=== PATIENT | male | born 1950 | race Two or more races ===

== ENCOUNTER 2020-02-01 19:53 | Emergency (ER) | payer MEDICARE, MEDICAID ==
[~2020-02-01] VITALS: Ht 180.3 cm; Wt 77.1 kg
[2020-02-01] MEDS ORDERED: SODIUM CHLORIDE 0.9% 500 ML IV ONE (20:30)
[2020-02-01 20:50] LABS: Basophils # (auto) 0 10 ^3/uL (0-0.2); Mean Corpuscular Hgb Conc. 35.3 g/dL (32.0-36.0); Monocytes # (auto) 0.4 10 ^3/uL (0-1.3); Red Blood Cells 4.61 10^6/uL (4.5-5.90)
[2020-02-01 20:52] LABS: Eosinophils # (auto) 0.1 10 ^3/uL (0-0.8); Eosinophils % (auto) 2.9 % (0.0-7.0); Hematocrit 45.5 % (41.0-53.0); Hemoglobin 16.1 g/dL (13.5-17.5); Lymphocytes % (auto) 22.9 % (10.0-50.0); Mean Corpuscular Hemoglobin 34.9 pg (28.0-32.0); Mean Corpuscular Volume 98.7 fL (80.0-100.0); Monocytes % (auto) 9.2 % (0.0-12.0); Neutrophils # (auto) 2.7 10 ^3/uL (1.6-8.6); Platelet Count (auto) 250 10^3/uL (140-450); White Blood Cell 4.2 10^3/uL (4.4-10.8)
[2020-02-01 21:03] LABS: Albumin 4.1 g/dL (3.4-5.0); BUN/Creatinine Ratio 8.8; Calcium 8.9 mg/dL (8.5-10.1); Magnesium 1.8 mg/dL (1.6-2.6); Potassium 3.9 mmol/L (3.5-5.1)
[2020-02-01 21:04] LABS: INR 1.06 (0.9-1.15); Partial Thromboplastin Time 27.9 sec (23.0-31.2)
[2020-02-01 21:08] LABS: Acetaminophen < 2.0 ug/mL (10-30)
[2020-02-01 21:09] LABS: Bilirubin, Total 0.7 mg/dL (0.2-1.0); Total Protein 7.9 g/dL (6.4-8.2)
[2020-02-01] MEDS ORDERED: IOHEXOL 350 MG/ML 100ML IJ ONE (22:14)
[2020-02-01] MEDS ORDERED: SODIUM CHLORIDE 0.9% 1,000 ML IV ONE (22:15)
[2020-02-01 22:50] VITALS: BP 134/84
== END 2020-02-01 22:46 | disposition home or self-care (01) ==
LOC: EDBD 19:53 → ER 19:57
DX: I21.4 Non-ST elevation (NSTEMI) myocardial infarction (principal); F19.20 Other psychoactive substance dependence, uncomplicated; I95.2 Hypotension due to drugs; R79.89 Other specified abnormal findings of blood chemistry; I10 Essential (primary) hypertension; E11.9 Type 2 diabetes mellitus without complications
CPT/HCPCS: 36415; 71045; 80053; 80320; 80329; 82962; 83735; 83880; 84484; 85025; 85379; 85610; 85730; 93005; 99291; Q9967

== ENCOUNTER 2020-07-03 12:17 | Inpatient (IN) | payer MEDICARE, MEDICAID ==
[~2020-07-03] VITALS: Ht 180.3 cm; Wt 76.8 kg
[2020-07-03] MEDS ORDERED: SODIUM CHLORIDE 0.9% 500 ML IV ONE (12:45)
[2020-07-03 14:51] LABS: Basophils # (auto) 0.1 10 ^3/uL (0-0.2); Eosinophils # (auto) 0.1 10 ^3/uL (0-0.8); Eosinophils % (auto) 1.8 % (0.0-7.0); Hematocrit 45.7 % (41.0-53.0); Lymphocytes # (auto) 1.8 10 ^3/uL (0.4-5.4); Lymphocytes % (auto) 32.5 % (10.0-50.0); Mean Corpuscular Hemoglobin 35.6 pg (28.0-32.0); Mean Corpuscular Hgb Conc. 34.9 g/dL (32.0-36.0); Monocytes # (auto) 0.5 10 ^3/uL (0-1.3); Monocytes % (auto) 8.6 % (0.0-12.0); Neutrophils % (auto) 56.1 % (37.0-80.0); Nucleated Red Blood Cells % 0.1 %; Platelet Count (auto) 297 10^3/uL (140-450); Red Blood Cells 4.48 10^6/uL (4.5-5.90); Red Cell Distribution Width 14.1 % (11.8-14.3); White Blood Cell 5.4 10^3/uL (4.4-10.8)
[2020-07-03 15:02] LABS: Albumin 3.8 g/dL (3.4-5.0); Anion Gap 7 (5-15); Calcium 8.7 mg/dL (8.5-10.1); Carbon Dioxide 25 mmol/L (21-32); Chloride 105 mmol/L (98-107); Glucose 213 mg/dL (74-106); Magnesium 2.1 mg/dL (1.6-2.6); Potassium 4.3 mmol/L (3.5-5.1); Sodium 137 mmol/L (136-145)
[2020-07-03 15:04] LABS: Aspartate Aminotransferase 17 U/L (15-37); GFR African American 73 mL/min; GFR Non-African American 61 mL/min
[2020-07-03 15:09] LABS: Alanine Aminotransferase 19 U/L (16-61); Alkaline Phosphatase 86 U/L (45-117); Bilirubin, Total 0.7 mg/dL (0.2-1.0); Total Protein 7.6 g/dL (6.4-8.2)
[2020-07-03 15:37] LABS: Blood Urea Nitrogen 15 mg/dL (7-18)
[2020-07-03] MEDS ORDERED: NITROGLYCERIN 0.4 MG SL TAB SL PRN (22:45)
[2020-07-03] MEDS ORDERED: ONDANSETRON HCL 4 MG/2 ML VIAL IV PRN (22:45)
[2020-07-03] MEDS ORDERED: DOCUSATE SOD 100 MG CAP PO PRN (22:45)
[2020-07-03] MEDS ORDERED: ACETAMINOPHEN 325 MG TAB PO PRN (22:45)
[2020-07-03] MEDS ORDERED: MORPHINE SULF INJ 2 MG/ML SYRINGE 1ML IV PRN (22:45)
[2020-07-03] MEDS ORDERED: DEXTROSE (50%) 50ML SYRG IV PRN (22:45)
[2020-07-03 22:59] LABS: Urine Bacteria NONE SEEN /hpf (None Seen); Urine Blood Negative /uL (Negative); Urine Specific Gravity 1.023 (1.001-1.035); Urine WBC <1 /hpf (0 - 3)
[2020-07-03] MEDS ORDERED: MECLIZINE HCL 25 MG TAB PO PRN (23:15)
[2020-07-04] MEDS: HYDROcodone-ACET 5/325MG TAB PO PRN ×3 (00:10→22:26)
[2020-07-04 00:15] LABS: INR 1.01 (0.9-1.15); Partial Thromboplastin Time 24.2 sec (23.0-31.2)
[2020-07-04] MEDS ORDERED: hydrALAZINE HCL 20 MG/ML VL IV PRN (01:00)
[2020-07-04] MEDS: SODIUM CHLORIDE 0.9% 1,000 ML IV SCH ×2 (01:03→16:27)
[2020-07-04] MEDS: ACCU-CHEK COMFORT CURVE STRIP VI SCH ×4 (06:27→22:29)
[2020-07-04] MEDS: InsuLIN REG 1unit/0.01ml Soln (100units/ml) SC SCH ×4 (07:07→22:27)
[2020-07-04 08:02] LABS: Calcium 8.6 mg/dL (8.5-10.1); Potassium 3.8 mmol/L (3.5-5.1)
[2020-07-04 08:08] LABS: Albumin 3.7 g/dL (3.4-5.0); Bilirubin, Total 0.9 mg/dL (0.2-1.0); Total Protein 7.7 g/dL (6.4-8.2)
[2020-07-04 08:30] LABS: Basophils # (auto) 0 10 ^3/uL (0-0.2); Basophils % (auto) 0.7 % (0.0-2.0); Eosinophils # (auto) 0.1 10 ^3/uL (0-0.8); Hematocrit 44.2 % (41.0-53.0); Hemoglobin 15.5 g/dL (13.5-17.5); Lymphocytes # (auto) 1.8 10 ^3/uL (0.4-5.4); Mean Corpuscular Hemoglobin 35.5 pg (28.0-32.0); Mean Corpuscular Volume 101.2 fL (80.0-100.0); Monocytes # (auto) 0.5 10 ^3/uL (0-1.3); Monocytes % (auto) 9.5 % (0.0-12.0); Neutrophils # (auto) 2.9 10 ^3/uL (1.6-8.6); Neutrophils % (auto) 53.8 % (37.0-80.0); Nucleated Red Blood Cells % 0.2 %; Platelet Count (auto) 289 10^3/uL (140-450); Red Blood Cells 4.37 10^6/uL (4.5-5.90); Red Cell Distribution Width 13.8 % (11.8-14.3); White Blood Cell 5.4 10^3/uL (4.4-10.8)
[2020-07-04 09:00] VITALS: BP 147/89
[2020-07-04] MEDS ORDERED: PARO1TAB33 PO (09:48)
[2020-07-04] MEDS ORDERED: INSDRIP SC (09:48)
[2020-07-04] MEDS ORDERED: LISI-648 PO (09:48)
[2020-07-04] MEDS ORDERED: ATOR40TA52 PO (09:48)
[2020-07-04] MEDS ORDERED: GABA300C10 PO (09:48)
[2020-07-04] MEDS ORDERED: HYDR-4072 PO (09:48)
[2020-07-04 09:51] VITALS: BP 147/89
[2020-07-04] MEDS: ENOXAPARIN SOD 40 MG/0.4 ML SYRINGE SC SCH (10:54)
[2020-07-04] MEDS: ASCORBIC ACID 500 MG TAB PO SCH ×2 (10:54→22:25)
[2020-07-04] MEDS: MULTIPLE VITAMIN TAB PO SCH (10:55)
[2020-07-04] MEDS: ZINC SULFATE 220mg CAP or TAB PO SCH (10:55)
[2020-07-04] MEDS: amLODIPine BESYLATE 5 MG TAB PO SCH (10:55)
[2020-07-04] MEDS: FAMOTIDINE (10MG/ML) 2ML VL IV SCH ×2 (10:56→22:24)
[2020-07-04 13:00] VITALS: BP 149/93
[2020-07-04] MEDS: GABAPENTIN 300 MG CAP PO SCH ×2 (14:43→22:25)
[2020-07-04 17:00] VITALS: BP 150/87
[2020-07-04 20:10] VITALS: BP 152/90
[2020-07-04 21:55] VITALS: BP 152/90
[2020-07-04] MEDS ORDERED: LORazepam 2MG/ML-1ML VIAL IV PRN (22:00)
[2020-07-04 22:24] LABS: Folate (Folic Acid) 10.33 ng/mL (5.38-24)
[2020-07-04] MEDS: ATORVASTATIN 20 MG TAB PO SCH (22:25)
[2020-07-04] MEDS: INSULIN LANTUS (GLARGINE) 1 /0.01ml (100units/ml) SC SCH (22:27)
[2020-07-05 05:17] VITALS: BP 132/91
[2020-07-05 05:44] LABS: Basophils # (auto) 0 10 ^3/uL (0-0.2); Eosinophils # (auto) 0.1 10 ^3/uL (0-0.8); Hemoglobin 15.2 g/dL (13.5-17.5); Neutrophils # (auto) 3.1 10 ^3/uL (1.6-8.6); Red Cell Distribution Width 13.9 % (11.8-14.3); White Blood Cell 6.2 10^3/uL (4.4-10.8)
[2020-07-05 05:49] LABS: Basophils % (auto) 0.6 % (0.0-2.0); Eosinophils % (auto) 1.6 % (0.0-7.0); Hematocrit 42.6 % (41.0-53.0); Lymphocytes # (auto) 2.4 10 ^3/uL (0.4-5.4); Lymphocytes % (auto) 39.5 % (10.0-50.0); Mean Corpuscular Hgb Conc. 35.7 g/dL (32.0-36.0); Mean Corpuscular Volume 100.9 fL (80.0-100.0); Monocytes # (auto) 0.5 10 ^3/uL (0-1.3); Monocytes % (auto) 8.3 % (0.0-12.0); Nucleated Red Blood Cells % 0.1 %; Platelet Count (auto) 288 10^3/uL (140-450); Red Blood Cells 4.22 10^6/uL (4.5-5.90)
[2020-07-05] MEDS: ACCU-CHEK COMFORT CURVE STRIP VI SCH ×4 (06:12→21:08)
[2020-07-05 06:14] LABS: Albumin 3.5 g/dL (3.4-5.0); Calcium 8.3 mg/dL (8.5-10.1); Potassium 3.9 mmol/L (3.5-5.1)
[2020-07-05] MEDS: InsuLIN REG 1unit/0.01ml Soln (100units/ml) SC SCH ×4 (06:15→21:08)
[2020-07-05] MEDS: GABAPENTIN 300 MG CAP PO SCH ×3 (06:15→21:07)
[2020-07-05 06:19] LABS: BUN/Creatinine Ratio 23.3; Bilirubin, Total 0.6 mg/dL (0.2-1.0); Total Protein 7.4 g/dL (6.4-8.2)
[2020-07-05 08:00] VITALS: BP 158/97
[2020-07-05] MEDS: SODIUM CHLORIDE 0.9% 1,000 ML IV SCH (08:43)
[2020-07-05] MEDS: ZINC SULFATE 220mg CAP or TAB PO SCH (09:30)
[2020-07-05] MEDS: FAMOTIDINE (10MG/ML) 2ML VL IV SCH ×2 (09:30→21:08)
[2020-07-05] MEDS: MULTIPLE VITAMIN TAB PO SCH (09:30)
[2020-07-05] MEDS: ASCORBIC ACID 500 MG TAB PO SCH ×2 (09:31→21:07)
[2020-07-05] MEDS: amLODIPine BESYLATE 5 MG TAB PO SCH (09:31)
[2020-07-05] MEDS: PARoxetine 20 MG TAB PO SCH (09:31)
[2020-07-05] MEDS: LISINOPRIL 10 MG TAB PO SCH (09:32)
[2020-07-05] MEDS: ENOXAPARIN SOD 40 MG/0.4 ML SYRINGE SC SCH (09:32)
[2020-07-05 12:51] VITALS: BP 146/98
[2020-07-05] MEDS: HYDROcodone-ACET 5/325MG TAB PO PRN (13:58)
[2020-07-05 16:38] VITALS: BP 145/80
[2020-07-05] MEDS: ATORVASTATIN 20 MG TAB PO SCH (21:07)
[2020-07-05] MEDS: INSULIN LANTUS (GLARGINE) 1 /0.01ml (100units/ml) SC SCH (21:08)
[2020-07-05 21:24] VITALS: BP 142/88
[2020-07-06] MEDS: SODIUM CHLORIDE 0.9% 1,000 ML IV SCH (00:43)
[2020-07-06 04:35] VITALS: BP 135/80
[2020-07-06] MEDS: GABAPENTIN 300 MG CAP PO SCH ×2 (05:53→14:27)
[2020-07-06 06:16] LABS: Basophils # (auto) 0 10 ^3/uL (0-0.2); Monocytes # (auto) 0.5 10 ^3/uL (0-1.3); Neutrophils # (auto) 2.4 10 ^3/uL (1.6-8.6); Red Blood Cells 4.33 10^6/uL (4.5-5.90); Red Cell Distribution Width 13.9 % (11.8-14.3)
[2020-07-06 06:21] LABS: Basophils % (auto) 0.6 % (0.0-2.0); Eosinophils # (auto) 0.2 10 ^3/uL (0-0.8); Eosinophils % (auto) 2.8 % (0.0-7.0); Hematocrit 43.7 % (41.0-53.0); Hemoglobin 15.5 g/dL (13.5-17.5); Lymphocytes # (auto) 2.4 10 ^3/uL (0.4-5.4); Lymphocytes % (auto) 43.5 % (10.0-50.0); Mean Corpuscular Hemoglobin 35.7 pg (28.0-32.0); Mean Corpuscular Hgb Conc. 35.4 g/dL (32.0-36.0); Mean Corpuscular Volume 100.8 fL (80.0-100.0); Monocytes % (auto) 9.7 % (0.0-12.0); Neutrophils % (auto) 43.4 % (37.0-80.0); Nucleated Red Blood Cells % 0.2 %; Platelet Count (auto) 279 10^3/uL (140-450); White Blood Cell 5.5 10^3/uL (4.4-10.8)
[2020-07-06] MEDS: ACCU-CHEK COMFORT CURVE STRIP VI SCH ×2 (06:29→11:30)
[2020-07-06 06:39] LABS: Potassium 3.8 mmol/L (3.5-5.1)
[2020-07-06] MEDS: InsuLIN REG 1unit/0.01ml Soln (100units/ml) SC SCH ×2 (06:39→13:03)
[2020-07-06 06:59] LABS: BUN/Creatinine Ratio 27.2; Calcium 8.6 mg/dL (8.5-10.1)
[2020-07-06 08:00] VITALS: BP 158/97
[2020-07-06 09:26] VITALS: BP 158/97
[2020-07-06] MEDS: FAMOTIDINE (10MG/ML) 2ML VL IV SCH (09:51)
[2020-07-06] MEDS: ZINC SULFATE 220mg CAP or TAB PO SCH (09:51)
[2020-07-06] MEDS: MULTIPLE VITAMIN TAB PO SCH (09:51)
[2020-07-06] MEDS: ASCORBIC ACID 500 MG TAB PO SCH (09:52)
[2020-07-06] MEDS: LISINOPRIL 10 MG TAB PO SCH (09:52)
[2020-07-06] MEDS: amLODIPine BESYLATE 5 MG TAB PO SCH (09:52)
[2020-07-06] MEDS: PARoxetine 20 MG TAB PO SCH (09:52)
[2020-07-06] MEDS: ENOXAPARIN SOD 40 MG/0.4 ML SYRINGE SC SCH (09:53)
[2020-07-06] MEDS: HYDROcodone-ACET 5/325MG TAB PO PRN (10:49)
[2020-07-06 15:03] VITALS: BP 144/67
== END 2020-07-06 16:08 | disposition home or self-care (01) | DRG 913 ==
LOC: ER 12:17 → TELE 12:18 → TELE-EAST 07-04 08:18
PROVIDERS: ADMIT Nurse Practitioner Family; ATTEND Internal Medicine
DX: S09.90XA Unspecified injury of head, initial encounter (principal); N17.0 Acute kidney failure with tubular necrosis; Z20.822 Contact with and (suspected) exposure to COVID-19; R53.1 Weakness; E11.22 Type 2 diabetes mellitus with diabetic chronic kidney disease; E11.42 Type 2 diabetes mellitus with diabetic polyneuropathy; E78.5 Hyperlipidemia, unspecified; F17.210 Nicotine dependence, cigarettes, uncomplicated; G40.909 Epilepsy, unspecified, not intractable, without status epilepticus; I12.9 Hypertensive chronic kidney disease with stage 1 through stage 4 chronic kidney disease, or unspecified chronic kidney disease; I67.2 Cerebral atherosclerosis; J44.9 Chronic obstructive pulmonary disease, unspecified; N18.9 Chronic kidney disease, unspecified; W18.39XA Other fall on same level, initial encounter; Y93.89 Activity, other specified; Y92.098 Other place in other non-institutional residence as the place of occurrence of the external cause; Y99.8 Other external cause status; Z79.899 Other long term (current) drug therapy; Z82.0 Family history of epilepsy and other diseases of the nervous system; Z79.891 Long term (current) use of opiate analgesic; Z79.4 Long term (current) use of insulin; Z79.01 Long term (current) use of anticoagulants; Z81.1 Family history of alcohol abuse and dependence; Z81.2 Family history of tobacco abuse and dependence; Z80.9 Family history of malignant neoplasm, unspecified; R55 Syncope and collapse
CPT/HCPCS: 36415; 70450; 70545; 71046; 80048; 80053; 81001; 82533; 82607; 82746; 82962; 83036; 83735; 84443; 84484; 85025; 85610; 85730; 87426; 93005; 96361; 96374; 97110; 97116; 97530; G0378; J1815; J3490

== ENCOUNTER 2020-10-17 11:04 | Inpatient (IN) | payer MEDICARE, MEDICAID ==
[~2020-10-17] VITALS: Ht 177.8 cm; Wt 77.0 kg
[~2020-10-17 11:04] MED LIST: ATOR40TA52 PO; GABA300C10 PO; HYDR-4072 PO; INSDRIP SC; LISI-716 PO; PARO1TAB33 PO
[2020-10-17 13:11] LABS: Basophils # (auto) 0 10 ^3/uL (0-0.2); Eosinophils # (auto) 0.3 10 ^3/uL (0-0.8); Hemoglobin 14.8 g/dL (13.5-17.5); Lymphocytes # (auto) 2.1 10 ^3/uL (0.4-5.4); Neutrophils # (auto) 3.7 10 ^3/uL (1.6-8.6); White Blood Cell 7.1 10^3/uL (4.4-10.8)
[2020-10-17 13:13] LABS: Basophils % (auto) 0.4 % (0.0-2.0); Eosinophils % (auto) 3.9 % (0.0-7.0); Hematocrit 41.8 % (41.0-53.0); Lymphocytes % (auto) 29.7 % (10.0-50.0); Mean Corpuscular Hgb Conc. 35.4 g/dL (32.0-36.0); Mean Corpuscular Volume 98.7 fL (80.0-100.0); Monocytes % (auto) 14.1 % (0.0-12.0); Neutrophils % (auto) 51.9 % (37.0-80.0); Nucleated Red Blood Cells % 0.1 %; Platelet Count (auto) 247 10^3/uL (140-450); Red Blood Cells 4.24 10^6/uL (4.5-5.90); Red Cell Distribution Width 12.6 % (11.8-14.3)
[2020-10-17] MEDS ORDERED: ASPirin 81 mg TAB PO ONE (13:15)
[2020-10-17 13:27] LABS: Albumin 4.4 g/dL (3.4-5.0); Blood Urea Nitrogen 18 mg/dL (7-18); Calcium 10.1 mg/dL (8.5-10.1); Chloride 103 mmol/L (98-107); Glucose 234 mg/dL (74-106); Potassium 4.7 mmol/L (3.5-5.1); Sodium 139 mmol/L (136-145)
[2020-10-17 13:33] LABS: Alanine Aminotransferase 15 U/L (16-61); Alkaline Phosphatase 89 U/L (45-117); Anion Gap 8 (5-15); Aspartate Aminotransferase 16 U/L (15-37); BUN/Creatinine Ratio 16.2; Bilirubin, Total 0.9 mg/dL (0.2-1.0); Carbon Dioxide 28 mmol/L (21-32); GFR African American 84 mL/min; GFR Non-African American 70 mL/min; Total Protein 8.4 g/dL (6.4-8.2)
[2020-10-17 13:51] LABS: INR 1.01 (0.9-1.15); Partial Thromboplastin Time 27.5 sec (23.0-31.2)
[2020-10-17] MEDS ORDERED: MORPHINE SULF INJ 2 MG/ML SYRINGE 1ML IV PRN ×2 (17:15→22:45)
[2020-10-17] MEDS ORDERED: ONDANSETRON HCL 4 MG/2 ML VIAL IV PRN ×2 (17:15→22:45)
[2020-10-17] MEDS ORDERED: hydrALAZINE HCL 20 MG/ML VL IV PRN ×2 (17:15→22:45)
[2020-10-17] MEDS ORDERED: DEXTROSE (50%) 50ML SYRG IV PRN ×2 (17:15→22:45)
[2020-10-17] MEDS ORDERED: LACTATED RINGER'S 1,000 ML IV ONE ×2 (17:15→22:45)
[2020-10-17] MEDS ORDERED: ALBUTEROL SULF 2.5 MG/0.5ML(0.5%) NEB SOLN NEB PRN (17:15)
[2020-10-17] MEDS ORDERED: MORPHINE SULFATE 4 MG/ML SYR/VIAL IV PRN (17:15)
[2020-10-17] MEDS ORDERED: TETANUS-DIPTH-ACEL PERTUSSIS 0.5ML SYR Tdap IM ONE (17:15)
[2020-10-17] MEDS ORDERED: NITROGLYCERIN 0.4 MG SL TAB SL PRN ×2 (17:15→22:45)
[2020-10-17] MEDS ORDERED: IPRATROPIUM BROM 0.5 MG/2.5ML INH SOL NEB PRN (17:15)
[2020-10-17] MEDS ORDERED: LORazepam 2MG/ML-1ML VIAL IV PRN ×2 (17:15→23:00)
[2020-10-17] MEDS ORDERED: IOHEXOL 350 MG/ML 100ML IJ ONE ×2 (17:55→18:42)
[2020-10-17 18:07] VITALS: BP 177/106
[2020-10-17 18:36] LABS: Urine Bacteria FEW /hpf (None Seen); Urine Blood Negative /uL (Negative); Urine Specific Gravity 1.018 (1.001-1.035); Urine WBC 1 /hpf (0 - 3)
[2020-10-17] MEDS ORDERED: InsuLIN REG 1unit/0.01ml Soln (100units/ml) SC SCH (20:00)
[2020-10-17] MEDS ORDERED: ACCU-CHEK COMFORT CURVE STRIP VI SCH (20:00)
[2020-10-17 20:30] VITALS: BP 158/101
[2020-10-17] MEDS ORDERED: BUDESONIDE (INHALATION) 0.5 MG/2 ML NEB NEB SCH (22:00)
[2020-10-17] MEDS ORDERED: INSULIN LANTUS (GLARGINE) 1 /0.01ml (100units/ml) SC SCH (22:00)
[2020-10-18 00:02] LABS: Alcohol, Urine < 3.0 mg/dL (0-10); Amphetamine Screen, Urine NEGATIVE (NEGATIVE); Barbiturate Scree,Urine NEGATIVE (NEGATIVE); Benzodiazephine Screen, Urine NEGATIVE (NEGATIVE); Cannabinoid Screen, Urine NEGATIVE (NEGATIVE); Cocaine Screen, Urine POSITIVE (NEGATIVE); Opiate Scree,Urine POSITIVE (NEGATIVE); Phencyclidine Screen, Urine NEGATIVE (NEGATIVE)
[2020-10-18] MEDS: ACCU-CHEK COMFORT CURVE STRIP VI SCH ×6 (00:15→21:52)
[2020-10-18] MEDS: InsuLIN REG 1unit/0.01ml Soln (100units/ml) SC SCH ×6 (00:17→21:52)
[2020-10-18] MEDS ORDERED: TEMA15CA2 PO (01:51)
[2020-10-18 05:00] VITALS: BP 156/92
[2020-10-18] MEDS: MORPHINE SULFATE 4 MG/ML SYR/VIAL IV PRN ×3 (06:24→22:04)
[2020-10-18] MEDS: PANTOPRAZOLE 40 MG/10 ML VIAL INJ IV SCH (08:13)
[2020-10-18] MEDS: ENOXAPARIN SOD 40 MG/0.4 ML SYRINGE SC SCH (08:13)
[2020-10-18 09:00] VITALS: BP 150/94
[2020-10-18] MEDS: ALBUTEROL SULF 2.5 MG/0.5ML(0.5%) NEB SOLN NEB PRN (09:18)
[2020-10-18] MEDS: BUDESONIDE (INHALATION) 0.5 MG/2 ML NEB NEB SCH ×2 (09:18→21:57)
[2020-10-18] MEDS ORDERED: PANTOPRAZOLE 40 MG/10 ML VIAL INJ IV SCH (10:00)
[2020-10-18] MEDS: NICOTINE 14 MG/24HR TOPICAL PATCH TD SCH (10:00)
[2020-10-18] MEDS ORDERED: ENOXAPARIN SOD 40 MG/0.4 ML SYRINGE SC SCH (10:00)
[2020-10-18] MEDS: METOPROLOL TARTRATE 25 MG TAB PO SCH ×2 (12:06→22:04)
[2020-10-18] MEDS: LISINOPRIL 20 MG TAB PO SCH (12:07)
[2020-10-18 13:00] VITALS: BP 136/82
[2020-10-18 16:33] VITALS: BP 127/73
[2020-10-18] MEDS: INSULIN LANTUS (GLARGINE) 1 /0.01ml (100units/ml) SC SCH (22:03)
[2020-10-18 22:04] VITALS: BP 128/81
[2020-10-19 04:26] VITALS: BP 145/90
[2020-10-19] MEDS: ACCU-CHEK COMFORT CURVE STRIP VI SCH ×4 (06:35→22:00)
[2020-10-19] MEDS: MORPHINE SULFATE 4 MG/ML SYR/VIAL IV PRN ×3 (06:35→20:18)
[2020-10-19] MEDS: InsuLIN REG 1unit/0.01ml Soln (100units/ml) SC SCH ×4 (06:37→22:02)
[2020-10-19 07:38] LABS: Albumin 3.7 g/dL (3.4-5.0); Anion Gap 6 (5-15); Blood Urea Nitrogen 20 mg/dL (7-18); Calcium 9.1 mg/dL (8.5-10.1); Carbon Dioxide 27 mmol/L (21-32); Chloride 105 mmol/L (98-107); Glucose 172 mg/dL (74-106); Potassium 4.6 mmol/L (3.5-5.1); Sodium 138 mmol/L (136-145)
[2020-10-19 07:43] LABS: Alanine Aminotransferase 14 U/L (16-61); Alkaline Phosphatase 78 U/L (45-117); Aspartate Aminotransferase 10 U/L (15-37); BUN/Creatinine Ratio 20.6; Bilirubin, Total 0.8 mg/dL (0.2-1.0); GFR African American 98 mL/min; GFR Non-African American 81 mL/min; Total Protein 7.7 g/dL (6.4-8.2)
[2020-10-19 07:44] LABS: Basophils # (auto) 0 10 ^3/uL (0-0.2); Basophils % (auto) 0.7 % (0.0-2.0); Eosinophils # (auto) 0.1 10 ^3/uL (0-0.8); Eosinophils % (auto) 2.1 % (0.0-7.0); Hematocrit 43.8 % (41.0-53.0); Hemoglobin 15.2 g/dL (13.5-17.5); Lymphocytes # (auto) 2.1 10 ^3/uL (0.4-5.4); Lymphocytes % (auto) 34.6 % (10.0-50.0); Mean Corpuscular Hgb Conc. 34.7 g/dL (32.0-36.0); Monocytes # (auto) 0.7 10 ^3/uL (0-1.3); Monocytes % (auto) 12.1 % (0.0-12.0); Neutrophils % (auto) 50.5 % (37.0-80.0); Nucleated Red Blood Cells % 0.3 %; Platelet Count (auto) 262 10^3/uL (140-450); Red Blood Cells 4.47 10^6/uL (4.5-5.90); Red Cell Distribution Width 12.8 % (11.8-14.3); White Blood Cell 5.9 10^3/uL (4.4-10.8)
[2020-10-19 09:00] VITALS: BP 138/80
[2020-10-19] MEDS: METOPROLOL TARTRATE 25 MG TAB PO SCH ×2 (09:21→21:54)
[2020-10-19] MEDS: LISINOPRIL 20 MG TAB PO SCH (09:21)
[2020-10-19] MEDS: PANTOPRAZOLE 40 MG/10 ML VIAL INJ IV SCH (09:22)
[2020-10-19] MEDS: ENOXAPARIN SOD 40 MG/0.4 ML SYRINGE SC SCH (09:22)
[2020-10-19] MEDS: NICOTINE 14 MG/24HR TOPICAL PATCH TD SCH (09:25)
[2020-10-19] MEDS ORDERED: TEMAZEPAM 15 MG CAP PO PRN (10:15)
[2020-10-19] MEDS ORDERED: LACTULOSE 20Gm/30ML SOLN PO PRN (10:15)
[2020-10-19] MEDS: BUDESONIDE (INHALATION) 0.5 MG/2 ML NEB NEB SCH ×2 (10:41→19:33)
[2020-10-19 12:35] VITALS: BP 147/89
[2020-10-19] MEDS: GABAPENTIN 300 MG CAP PO SCH ×2 (14:33→21:54)
[2020-10-19 17:11] VITALS: BP 142/73
[2020-10-19] MEDS: ALBUTEROL SULF 2.5 MG/0.5ML(0.5%) NEB SOLN NEB PRN (19:33)
[2020-10-19 22:00] VITALS: BP 124/76
[2020-10-19] MEDS: INSULIN LANTUS (GLARGINE) 1 /0.01ml (100units/ml) SC SCH (22:03)
[2020-10-19] MEDS: ATORVASTATIN 20 MG TAB PO SCH (22:05)
[2020-10-20] VITALS (7 sets, daily range): BP systolic 131–147; BP diastolic 74–90
[2020-10-20] MEDS: MORPHINE SULFATE 4 MG/ML SYR/VIAL IV PRN ×2 (05:17→23:44)
[2020-10-20] MEDS: InsuLIN REG 1unit/0.01ml Soln (100units/ml) SC SCH ×4 (06:07→22:00)
[2020-10-20] MEDS: ACCU-CHEK COMFORT CURVE STRIP VI SCH ×4 (06:07→22:00)
[2020-10-20] MEDS: GABAPENTIN 300 MG CAP PO SCH ×3 (06:11→21:57)
[2020-10-20 06:44] LABS: Hemoglobin 15.1 g/dL (13.5-17.5); Monocytes # (auto) 0.6 10 ^3/uL (0-1.3); Nucleated Red Blood Cells % 0.1 %
[2020-10-20 06:47] LABS: Basophils # (auto) 0.1 10 ^3/uL (0-0.2); Basophils % (auto) 1.3 % (0.0-2.0); Eosinophils # (auto) 0.1 10 ^3/uL (0-0.8); Eosinophils % (auto) 2.1 % (0.0-7.0); Hematocrit 41.5 % (41.0-53.0); Lymphocytes # (auto) 1.9 10 ^3/uL (0.4-5.4); Lymphocytes % (auto) 35.3 % (10.0-50.0); Mean Corpuscular Hemoglobin 35.2 pg (28.0-32.0); Mean Corpuscular Hgb Conc. 36.4 g/dL (32.0-36.0); Mean Corpuscular Volume 96.7 fL (80.0-100.0); Monocytes % (auto) 11.5 % (0.0-12.0); Neutrophils # (auto) 2.7 10 ^3/uL (1.6-8.6); Neutrophils % (auto) 49.8 % (37.0-80.0); Platelet Count (auto) 251 10^3/uL (140-450); Red Blood Cells 4.29 10^6/uL (4.5-5.90); Red Cell Distribution Width 12.4 % (11.8-14.3); White Blood Cell 5.4 10^3/uL (4.4-10.8)
[2020-10-20 07:00] LABS: BUN/Creatinine Ratio 24.5; Calcium 9.2 mg/dL (8.5-10.1); Potassium 4.4 mmol/L (3.5-5.1)
[2020-10-20] MEDS: ALBUTEROL SULF 2.5 MG/0.5ML(0.5%) NEB SOLN NEB PRN ×2 (08:33→23:15)
[2020-10-20] MEDS: IPRATROPIUM BROM 0.5 MG/2.5ML INH SOL NEB PRN ×2 (08:33→23:15)
[2020-10-20] MEDS: BUDESONIDE (INHALATION) 0.5 MG/2 ML NEB NEB SCH ×2 (08:34→23:15)
[2020-10-20] MEDS: NICOTINE 14 MG/24HR TOPICAL PATCH TD SCH ×2 (10:00→10:21)
[2020-10-20] MEDS: ENOXAPARIN SOD 40 MG/0.4 ML SYRINGE SC SCH (10:20)
[2020-10-20] MEDS: PANTOPRAZOLE 40 MG/10 ML VIAL INJ IV SCH (10:20)
[2020-10-20] MEDS: METOPROLOL TARTRATE 25 MG TAB PO SCH ×2 (10:21→21:57)
[2020-10-20] MEDS: LISINOPRIL 20 MG TAB PO SCH (10:21)
[2020-10-20] MEDS: HYDROcodone-ACET 5/325MG TAB PO PRN ×2 (12:17→21:22)
[2020-10-20] MEDS: traZODone HCL 50 MG TAB PO SCH (21:56)
[2020-10-20] MEDS: ATORVASTATIN 20 MG TAB PO SCH (21:57)
[2020-10-20] MEDS: INSULIN LANTUS (GLARGINE) 1 /0.01ml (100units/ml) SC SCH (22:00)
[2020-10-21] MEDS: HYDROcodone-ACET 5/325MG TAB PO PRN ×3 (04:48→20:39)
[2020-10-21 05:00] VITALS: BP 125/75
[2020-10-21] MEDS: GABAPENTIN 300 MG CAP PO SCH ×3 (05:48→21:52)
[2020-10-21] MEDS: BUDESONIDE (INHALATION) 0.5 MG/2 ML NEB NEB SCH ×2 (06:07→19:19)
[2020-10-21 06:54] LABS: Calcium 8.8 mg/dL (8.5-10.1); Potassium 3.7 mmol/L (3.5-5.1)
[2020-10-21] MEDS: InsuLIN REG 1unit/0.01ml Soln (100units/ml) SC SCH ×4 (07:11→22:12)
[2020-10-21] MEDS: ACCU-CHEK COMFORT CURVE STRIP VI SCH ×4 (07:11→22:13)
[2020-10-21 07:41] LABS: Hematocrit 41.2 % (41.0-53.0)
[2020-10-21 07:42] LABS: Basophils # (auto) 0 10 ^3/uL (0-0.2); Basophils % (auto) 0.8 % (0.0-2.0); Eosinophils # (auto) 0.2 10 ^3/uL (0-0.8); Eosinophils % (auto) 3.1 % (0.0-7.0); Hemoglobin 14.5 g/dL (13.5-17.5); Lymphocytes # (auto) 2.6 10 ^3/uL (0.4-5.4); Lymphocytes % (auto) 42.5 % (10.0-50.0); Mean Corpuscular Hemoglobin 34.5 pg (28.0-32.0); Mean Corpuscular Hgb Conc. 35.1 g/dL (32.0-36.0); Mean Corpuscular Volume 98.3 fL (80.0-100.0); Monocytes # (auto) 0.6 10 ^3/uL (0-1.3); Monocytes % (auto) 9.4 % (0.0-12.0); Neutrophils # (auto) 2.8 10 ^3/uL (1.6-8.6); Neutrophils % (auto) 44.2 % (37.0-80.0); Nucleated Red Blood Cells % 0.3 %; Platelet Count (auto) 255 10^3/uL (140-450); Red Blood Cells 4.19 10^6/uL (4.5-5.90); Red Cell Distribution Width 12.6 % (11.8-14.3); White Blood Cell 6.2 10^3/uL (4.4-10.8)
[2020-10-21 08:58] VITALS: BP 149/88
[2020-10-21] MEDS: METOPROLOL TARTRATE 25 MG TAB PO SCH ×2 (09:26→21:54)
[2020-10-21] MEDS: PANTOPRAZOLE 40 MG/10 ML VIAL INJ IV SCH (09:30)
[2020-10-21] MEDS: LISINOPRIL 20 MG TAB PO SCH (09:30)
[2020-10-21] MEDS: NICOTINE 14 MG/24HR TOPICAL PATCH TD SCH (09:30)
[2020-10-21] MEDS: ENOXAPARIN SOD 40 MG/0.4 ML SYRINGE SC SCH (09:30)
[2020-10-21 12:15] VITALS: BP 133/80
[2020-10-21 16:49] VITALS: BP 126/76
[2020-10-21 20:00] VITALS: BP 153/82
[2020-10-21] MEDS: traZODone HCL 50 MG TAB PO SCH (21:52)
[2020-10-21] MEDS: ATORVASTATIN 20 MG TAB PO SCH (21:52)
[2020-10-21 22:00] VITALS: BP 153/82
[2020-10-21] MEDS: INSULIN LANTUS (GLARGINE) 1 /0.01ml (100units/ml) SC SCH (22:13)
[2020-10-22 05:04] VITALS: BP 132/80
[2020-10-22] MEDS: HYDROcodone-ACET 5/325MG TAB PO PRN ×2 (06:02→21:10)
[2020-10-22] MEDS: GABAPENTIN 300 MG CAP PO SCH ×3 (06:02→21:10)
[2020-10-22] MEDS: IPRATROPIUM BROM 0.5 MG/2.5ML INH SOL NEB PRN (06:39)
[2020-10-22] MEDS: ALBUTEROL SULF 2.5 MG/0.5ML(0.5%) NEB SOLN NEB PRN (06:39)
[2020-10-22] MEDS: BUDESONIDE (INHALATION) 0.5 MG/2 ML NEB NEB SCH ×2 (06:39→20:19)
[2020-10-22] MEDS: ACCU-CHEK COMFORT CURVE STRIP VI SCH ×4 (07:00→21:10)
[2020-10-22] MEDS: InsuLIN REG 1unit/0.01ml Soln (100units/ml) SC SCH ×4 (07:06→21:30)
[2020-10-22 09:00] VITALS: BP 131/75
[2020-10-22] MEDS: PANTOPRAZOLE 40 MG/10 ML VIAL INJ IV SCH (09:46)
[2020-10-22] MEDS: LISINOPRIL 20 MG TAB PO SCH (09:47)
[2020-10-22] MEDS: METOPROLOL TARTRATE 25 MG TAB PO SCH ×2 (09:47→21:09)
[2020-10-22] MEDS: ENOXAPARIN SOD 40 MG/0.4 ML SYRINGE SC SCH (09:48)
[2020-10-22] MEDS: NICOTINE 14 MG/24HR TOPICAL PATCH TD SCH (10:00)
[2020-10-22] MEDS ORDERED: MORPHINE SULFATE 4 MG/ML SYR/VIAL IV PRN (12:00)
[2020-10-22 12:45] VITALS: BP 120/78
[2020-10-22 17:00] VITALS: BP 107/63
[2020-10-22] MEDS: traZODone HCL 50 MG TAB PO SCH (21:09)
[2020-10-22] MEDS: ATORVASTATIN 20 MG TAB PO SCH (21:09)
[2020-10-22] MEDS: INSULIN LANTUS (GLARGINE) 1 /0.01ml (100units/ml) SC SCH (21:31)
[2020-10-22 22:00] VITALS: BP 135/80
[2020-10-23 04:47] VITALS: BP 116/68
[2020-10-23] MEDS: GABAPENTIN 300 MG CAP PO SCH ×3 (05:29→21:38)
[2020-10-23] MEDS: HYDROcodone-ACET 5/325MG TAB PO PRN ×3 (05:31→22:07)
[2020-10-23] MEDS: ACCU-CHEK COMFORT CURVE STRIP VI SCH ×4 (05:43→21:44)
[2020-10-23] MEDS: InsuLIN REG 1unit/0.01ml Soln (100units/ml) SC SCH ×4 (05:50→21:44)
[2020-10-23 08:30] VITALS: BP 115/73
[2020-10-23] MEDS: BUDESONIDE (INHALATION) 0.5 MG/2 ML NEB NEB SCH (09:23)
[2020-10-23] MEDS: NICOTINE 14 MG/24HR TOPICAL PATCH TD SCH ×2 (10:00→10:01)
[2020-10-23] MEDS: LISINOPRIL 20 MG TAB PO SCH (10:00)
[2020-10-23] MEDS: METOPROLOL TARTRATE 25 MG TAB PO SCH (10:00)
[2020-10-23] MEDS: ENOXAPARIN SOD 40 MG/0.4 ML SYRINGE SC SCH (10:01)
[2020-10-23 10:14] VITALS: BP 115/73
[2020-10-23] MEDS ORDERED: LACTULOSE 20Gm/30ML SOLN PO ONE (10:30)
[2020-10-23 12:30] VITALS: BP 127/79
[2020-10-23 17:00] VITALS: BP 113/72
[2020-10-23] MEDS: ATORVASTATIN 20 MG TAB PO SCH (21:38)
[2020-10-23] MEDS: traZODone HCL 50 MG TAB PO SCH (21:38)
[2020-10-23] MEDS: INSULIN LANTUS (GLARGINE) 1 /0.01ml (100units/ml) SC SCH (21:45)
[2020-10-23 22:00] VITALS: BP 108/65
[2020-10-24 05:00] VITALS: BP 103/61
[2020-10-24] MEDS: HYDROcodone-ACET 5/325MG TAB PO PRN ×2 (06:01→12:26)
[2020-10-24] MEDS: GABAPENTIN 300 MG CAP PO SCH ×2 (06:01→13:35)
[2020-10-24] MEDS: ACCU-CHEK COMFORT CURVE STRIP VI SCH ×3 (06:09→17:00)
[2020-10-24] MEDS: InsuLIN REG 1unit/0.01ml Soln (100units/ml) SC SCH ×3 (06:12→17:00)
[2020-10-24 09:00] VITALS: BP 132/72
[2020-10-24] MEDS: LISINOPRIL 20 MG TAB PO SCH (09:33)
[2020-10-24] MEDS: ENOXAPARIN SOD 40 MG/0.4 ML SYRINGE SC SCH (09:33)
[2020-10-24 12:37] VITALS: BP 127/73
[2020-10-24 16:31] VITALS: BP 111/60
[2020-10-24 17:04] VITALS: BP 132/72
== END 2020-10-24 18:59 | disposition short-term general hospital (02) | DRG 313 ==
LOC: ER 11:04 → TELE 17:01 → ER 19:56 → TELE-WESTW 22:30 → TELE-EAST 10-18 01:00 → EAST 10-23 12:13
PROVIDERS: ADMIT Family Medicine; ATTEND Internal Medicine
DX: R07.89 Other chest pain (principal); R45.851 Suicidal ideations; F41.9 Anxiety disorder, unspecified; F32.9 Major depressive disorder, single episode, unspecified; I10 Essential (primary) hypertension; F19.10 Other psychoactive substance abuse, uncomplicated; J44.9 Chronic obstructive pulmonary disease, unspecified; E11.21 Type 2 diabetes mellitus with diabetic nephropathy; E11.65 Type 2 diabetes mellitus with hyperglycemia; F10.10 Alcohol abuse, uncomplicated; I16.0 Hypertensive urgency; E78.5 Hyperlipidemia, unspecified; F17.210 Nicotine dependence, cigarettes, uncomplicated; M54.5 Low back pain; G89.29 Other chronic pain; Z20.822 Contact with and (suspected) exposure to COVID-19; Z89.421 Acquired absence of other right toe(s); R07.81 Pleurodynia; E11.40 Type 2 diabetes mellitus with diabetic neuropathy, unspecified; Z79.4 Long term (current) use of insulin; Z81.1 Family history of alcohol abuse and dependence; Z80.0 Family history of malignant neoplasm of digestive organs
CPT/HCPCS: 36415; 71046; 71275; 80048; 80053; 80307; 81001; 82962; 83036; 83735; 83880; 84443; 84484; 85025; 85379; 85610; 85730; 87081; 87426; 90471; 90715; 93005; 93306; 94640; 96361; 96374; 97110; 97116; 97530; C9113; G0378; J1815

== ENCOUNTER 2020-11-21 18:07 | Inpatient (IN) | payer MEDICARE, MEDICAID ==
[~2020-11-21] VITALS: Ht 180.3 cm; Wt 75.6 kg
[~2020-11-21 18:07] MED LIST changes: -PARO1TAB33 PO; +TEMA15CA2 PO
[2020-11-21] MEDS ORDERED: SODIUM CHLORIDE 0.9% 1,000 ML IVB ONE (18:45)
[2020-11-21] MEDS ORDERED: ONDANSETRON HCL 4 MG/2 ML VIAL IV ONE (18:45)
[2020-11-21 18:56] LABS: Basophils # (auto) 0 10 ^3/uL (0-0.2); Eosinophils # (auto) 0 10 ^3/uL (0-0.8); Hemoglobin 15.6 g/dL (13.5-17.5); Mean Corpuscular Hgb Conc. 36.1 g/dL (32.0-36.0); White Blood Cell 12.4 10^3/uL (4.4-10.8)
[2020-11-21 18:57] LABS: Basophils % (auto) 0.2 % (0.0-2.0); Hematocrit 43.1 % (41.0-53.0); Lymphocytes # (auto) 1.5 10 ^3/uL (0.4-5.4); Mean Corpuscular Hemoglobin 35.6 pg (28.0-32.0); Mean Corpuscular Volume 98.7 fL (80.0-100.0); Monocytes % (auto) 8.1 % (0.0-12.0); Neutrophils # (auto) 9.8 10 ^3/uL (1.6-8.6); Neutrophils % (auto) 79.7 % (37.0-80.0); Platelet Count (auto) 202 10^3/uL (140-450); Red Blood Cells 4.37 10^6/uL (4.5-5.90); Red Cell Distribution Width 13.9 % (11.8-14.3)
[2020-11-21 19:22] LABS: Albumin 3.7 g/dL (3.4-5.0); Anion Gap 10 (5-15); Blood Urea Nitrogen 21 mg/dL (7-18); Calcium 8.6 mg/dL (8.5-10.1); Carbon Dioxide 22 mmol/L (21-32); Chloride 106 mmol/L (98-107); Glucose 238 mg/dL (74-106); Magnesium 1.7 mg/dL (1.6-2.6); Potassium 3.8 mmol/L (3.5-5.1); Sodium 138 mmol/L (136-145)
[2020-11-21 19:26] LABS: Alanine Aminotransferase 21 U/L (16-61); Alkaline Phosphatase 76 U/L (45-117); Aspartate Aminotransferase 32 U/L (15-37); BUN/Creatinine Ratio 22.1; GFR African American 101 mL/min; GFR Non-African American 83 mL/min; Total Protein 7.4 g/dL (6.4-8.2)
[2020-11-22] MEDS ORDERED: ACETAMINOPHEN 325 MG TAB PO PRN
[2020-11-22] MEDS ORDERED: SODIUM CHLORIDE 0.9% 1,000 ML IV SCH
[2020-11-22] MEDS ORDERED: DEXTROSE (50%) 50ML SYRG IV PRN
[2020-11-22] MEDS ORDERED: MORPHINE SULF INJ 2 MG/ML SYRINGE 1ML IV PRN
[2020-11-22] MEDS ORDERED: NITROGLYCERIN 0.4 MG SL TAB SL PRN
[2020-11-22 02:40] VITALS: BP 159/81
[2020-11-22] MEDS: MORPHINE SULFATE 4 MG/ML SYR/VIAL IV PRN (03:43)
[2020-11-22 05:00] VITALS: BP 168/88
[2020-11-22] MEDS: metroNIDAZOLE 500MG/100ML 100 ML IV SCH ×3 (06:07→21:36)
[2020-11-22] MEDS: ACCU-CHEK COMFORT CURVE STRIP VI SCH ×4 (07:00→21:45)
[2020-11-22] MEDS: InsuLIN REG 1unit/0.01ml Soln (100units/ml) SC SCH ×4 (07:04→22:06)
[2020-11-22 07:05] LABS: Urine Bacteria NONE SEEN /hpf (None Seen); Urine Blood Negative /uL (Negative); Urine Specific Gravity 1.012 (1.001-1.035); Urine WBC <1 /hpf (0 - 3)
[2020-11-22 08:26] LABS: Eosinophils # (auto) 0 10 ^3/uL (0-0.8); Eosinophils % (auto) 0.3 % (0.0-7.0); Hemoglobin 14.7 g/dL (13.5-17.5); Monocytes # (auto) 0.8 10 ^3/uL (0-1.3); Neutrophils # (auto) 6.1 10 ^3/uL (1.6-8.6); Neutrophils % (auto) 67.6 % (37.0-80.0)
[2020-11-22 08:27] LABS: Basophils # (auto) 0.1 10 ^3/uL (0-0.2); Basophils % (auto) 0.6 % (0.0-2.0); Hematocrit 41.5 % (41.0-53.0); Lymphocytes % (auto) 22.3 % (10.0-50.0); Mean Corpuscular Hemoglobin 34.8 pg (28.0-32.0); Mean Corpuscular Hgb Conc. 35.3 g/dL (32.0-36.0); Mean Corpuscular Volume 98.4 fL (80.0-100.0); Monocytes % (auto) 9.2 % (0.0-12.0); Platelet Count (auto) 196 10^3/uL (140-450); Red Blood Cells 4.22 10^6/uL (4.5-5.90); Red Cell Distribution Width 13.7 % (11.8-14.3)
[2020-11-22 08:49] LABS: Albumin 3.5 g/dL (3.4-5.0); Calcium 8.3 mg/dL (8.5-10.1); Potassium 3.9 mmol/L (3.5-5.1)
[2020-11-22 08:52] LABS: BUN/Creatinine Ratio 19.5; Bilirubin, Total 1.1 mg/dL (0.2-1.0); Total Protein 6.9 g/dL (6.4-8.2)
[2020-11-22 09:00] VITALS: BP 145/58
[2020-11-22] MEDS: PANTOPRAZOLE 40 MG/10 ML VIAL INJ IV SCH (09:38)
[2020-11-22] MEDS: ZINC SULFATE 220mg CAP or TAB PO SCH (09:39)
[2020-11-22] MEDS: ENOXAPARIN SOD 40 MG/0.4 ML SYRINGE SC SCH (09:39)
[2020-11-22] MEDS: MULTIPLE VITAMIN TAB PO SCH (09:39)
[2020-11-22] MEDS: HYDROcodone-ACET 5/325MG TAB PO PRN ×3 (09:40→21:37)
[2020-11-22] MEDS: ASCORBIC ACID 500 MG TAB PO SCH ×2 (09:40→21:36)
[2020-11-22 11:46] LABS: Alcohol, Urine < 3.0 mg/dL (0-10); Cannabinoid Screen, Urine NEGATIVE (NEGATIVE)
[2020-11-22 11:54] LABS: Amphetamine Screen, Urine NEGATIVE (NEGATIVE); Barbiturate Scree,Urine NEGATIVE (NEGATIVE); Benzodiazephine Screen, Urine NEGATIVE (NEGATIVE); Cocaine Screen, Urine POSITIVE (NEGATIVE); Opiate Scree,Urine NEGATIVE (NEGATIVE); Phencyclidine Screen, Urine NEGATIVE (NEGATIVE)
[2020-11-22 13:00] VITALS: BP 128/71
[2020-11-22 16:34] VITALS: BP 146/88
[2020-11-22 21:59] VITALS: BP 148/88
[2020-11-23 05:05] VITALS: BP 150/90
[2020-11-23] MEDS: ACCU-CHEK COMFORT CURVE STRIP VI SCH ×4 (06:27→21:33)
[2020-11-23] MEDS: metroNIDAZOLE 500MG/100ML 100 ML IV SCH ×3 (06:27→21:33)
[2020-11-23] MEDS: InsuLIN REG 1unit/0.01ml Soln (100units/ml) SC SCH ×4 (06:29→21:34)
[2020-11-23] MEDS: PANTOPRAZOLE 40 MG/10 ML VIAL INJ IV SCH (08:59)
[2020-11-23 09:00] VITALS: BP 153/94
[2020-11-23] MEDS: ZINC SULFATE 220mg CAP or TAB PO SCH (09:00)
[2020-11-23] MEDS: ENOXAPARIN SOD 40 MG/0.4 ML SYRINGE SC SCH (09:00)
[2020-11-23] MEDS: MULTIPLE VITAMIN TAB PO SCH (09:00)
[2020-11-23] MEDS: ASCORBIC ACID 500 MG TAB PO SCH ×2 (09:00→21:33)
[2020-11-23] MEDS: HYDROcodone-ACET 5/325MG TAB PO PRN ×2 (09:00→17:05)
[2020-11-23] MEDS: LISINOPRIL 10 MG TAB PO SCH (11:06)
[2020-11-23 13:00] VITALS: BP 157/92
[2020-11-23] MEDS: ONDANSETRON HCL 4 MG/2 ML VIAL IV PRN (13:39)
[2020-11-23 16:46] VITALS: BP 160/95
[2020-11-23] MEDS: SUCRALFATE 1 GM/10 ML ORAL SUSP PO SCH ×2 (17:04→21:33)
[2020-11-23 22:00] VITALS: BP 144/83
[2020-11-23] MEDS: MORPHINE SULFATE 4 MG/ML SYR/VIAL IV PRN (23:20)
[2020-11-24 05:17] VITALS: BP 153/89
[2020-11-24] MEDS: HYDROcodone-ACET 5/325MG TAB PO PRN ×2 (06:02→20:42)
[2020-11-24] MEDS: metroNIDAZOLE 500MG/100ML 100 ML IV SCH ×3 (06:03→20:42)
[2020-11-24] MEDS: SUCRALFATE 1 GM/10 ML ORAL SUSP PO SCH ×4 (06:03→20:41)
[2020-11-24] MEDS: ACCU-CHEK COMFORT CURVE STRIP VI SCH ×4 (06:03→20:39)
[2020-11-24] MEDS: InsuLIN REG 1unit/0.01ml Soln (100units/ml) SC SCH ×4 (06:25→20:40)
[2020-11-24] MEDS: ASCORBIC ACID 500 MG TAB PO SCH ×2 (08:55→20:40)
[2020-11-24] MEDS: MULTIPLE VITAMIN TAB PO SCH (08:55)
[2020-11-24] MEDS: ENOXAPARIN SOD 40 MG/0.4 ML SYRINGE SC SCH (08:56)
[2020-11-24] MEDS: PANTOPRAZOLE 40 MG/10 ML VIAL INJ IV SCH (08:56)
[2020-11-24] MEDS: ZINC SULFATE 220mg CAP or TAB PO SCH (08:56)
[2020-11-24] MEDS: LISINOPRIL 10 MG TAB PO SCH (08:57)
[2020-11-24 09:00] VITALS: BP 142/85
[2020-11-24 13:00] VITALS: BP 157/85
[2020-11-24 17:00] VITALS: BP 161/89
[2020-11-24] MEDS: ONDANSETRON HCL 4 MG/2 ML VIAL IV PRN (20:42)
[2020-11-24 22:00] VITALS: BP 126/90
[2020-11-25] MEDS: HYDROcodone-ACET 5/325MG TAB PO PRN ×2 (02:28→19:52)
[2020-11-25 05:00] VITALS: BP 134/79
[2020-11-25] MEDS: ACCU-CHEK COMFORT CURVE STRIP VI SCH ×4 (05:34→20:33)
[2020-11-25] MEDS: InsuLIN REG 1unit/0.01ml Soln (100units/ml) SC SCH ×4 (05:41→20:42)
[2020-11-25] MEDS: SUCRALFATE 1 GM/10 ML ORAL SUSP PO SCH ×4 (05:46→20:43)
[2020-11-25] MEDS: metroNIDAZOLE 500MG/100ML 100 ML IV SCH (05:47)
[2020-11-25 09:00] VITALS: BP 156/82
[2020-11-25] MEDS: MULTIPLE VITAMIN TAB PO SCH (10:39)
[2020-11-25] MEDS: ASCORBIC ACID 500 MG TAB PO SCH ×2 (10:39→20:42)
[2020-11-25] MEDS: PANTOPRAZOLE 40 MG/10 ML VIAL INJ IV SCH (10:40)
[2020-11-25] MEDS: ENOXAPARIN SOD 40 MG/0.4 ML SYRINGE SC SCH (10:40)
[2020-11-25] MEDS: LISINOPRIL 10 MG TAB PO SCH (10:40)
[2020-11-25] MEDS: ZINC SULFATE 220mg CAP or TAB PO SCH (10:40)
[2020-11-25] MEDS: MORPHINE SULFATE 4 MG/ML SYR/VIAL IV PRN ×2 (11:47→20:43)
[2020-11-25 13:00] VITALS: BP 149/86
[2020-11-25 17:00] VITALS: BP 158/90
[2020-11-25 22:00] VITALS: BP 151/82
[2020-11-26 05:00] VITALS: BP 164/85
[2020-11-26] MEDS: InsuLIN REG 1unit/0.01ml Soln (100units/ml) SC SCH ×3 (05:30→17:45)
[2020-11-26] MEDS: SUCRALFATE 1 GM/10 ML ORAL SUSP PO SCH ×3 (05:31→17:20)
[2020-11-26] MEDS: ACCU-CHEK COMFORT CURVE STRIP VI SCH ×3 (05:31→17:20)
[2020-11-26 09:00] VITALS: BP 130/79
[2020-11-26] MEDS ORDERED: ADENOSINE 64 MG in GIVE UN-DILUTED 0 ML IV ONE (09:15)
[2020-11-26 11:29] VITALS: BP 131/70
[2020-11-26] MEDS: PANTOPRAZOLE 40 MG/10 ML VIAL INJ IV SCH (12:59)
[2020-11-26] MEDS: MULTIPLE VITAMIN TAB PO SCH (12:59)
[2020-11-26] MEDS: ENOXAPARIN SOD 40 MG/0.4 ML SYRINGE SC SCH (12:59)
[2020-11-26] MEDS: ZINC SULFATE 220mg CAP or TAB PO SCH (12:59)
[2020-11-26] MEDS: ASCORBIC ACID 500 MG TAB PO SCH (12:59)
[2020-11-26 13:00] VITALS: BP 138/76
[2020-11-26] MEDS: LISINOPRIL 10 MG TAB PO SCH (13:00)
[2020-11-26] MEDS: HYDROcodone-ACET 5/325MG TAB PO PRN (13:05)
[2020-11-26 17:00] VITALS: BP 144/72
== END 2020-11-26 19:43 | disposition left against medical advice (07) | DRG 465 ==
LOC: ER 18:07 → EDBD 18:07 → TELE-WESTW 23:55
PROVIDERS: ADMIT Nurse Practitioner Family; ATTEND Family Medicine
DX: N20.0 Calculus of kidney (principal); E11.21 Type 2 diabetes mellitus with diabetic nephropathy; E11.40 Type 2 diabetes mellitus with diabetic neuropathy, unspecified; J44.9 Chronic obstructive pulmonary disease, unspecified; D72.829 Elevated white blood cell count, unspecified; I10 Essential (primary) hypertension; Z20.822 Contact with and (suspected) exposure to COVID-19; E78.00 Pure hypercholesterolemia, unspecified; Z53.29 Procedure and treatment not carried out because of patient's decision for other reasons; E78.5 Hyperlipidemia, unspecified; F14.10 Cocaine abuse, uncomplicated; F32.9 Major depressive disorder, single episode, unspecified; F41.9 Anxiety disorder, unspecified; G89.29 Other chronic pain; M48.061 Spinal stenosis, lumbar region without neurogenic claudication; E11.65 Type 2 diabetes mellitus with hyperglycemia; F19.10 Other psychoactive substance abuse, uncomplicated; Z80.0 Family history of malignant neoplasm of digestive organs; Z82.49 Family history of ischemic heart disease and other diseases of the circulatory system; Z71.6 Tobacco abuse counseling; Z72.0 Tobacco use
CPT/HCPCS: 36415; 71045; 74176; 78452; 80053; 80307; 81001; 82962; 83036; 83690; 83735; 84484; 85025; 85049; 87426; 93005; 93017; 96361; 96374; C9113; G0378; J0153; J1815; J2405; J3490